=== PATIENT | female | born 1985 ===

== ENCOUNTER 2017-02-06 23:35 | Emergency (ER) | payer OTHER ==
[~2017-02-06] VITALS: Ht 162.6 cm; Wt 68.0 kg
[2017-02-06 23:43] VITALS: Ht 162.6 cm; Wt 68.0 kg
--- NOTE | 2017-02-07 00:14 | ERD ---
ER Documentation Chief Complaint Chief Complaint running in traffic, erratic, admits to using meth this am. In [employer] custody HPI This 31-year-old female presents in police custody for an arrest. She admits to using methamphetamines this morning. She denies any physical complaints. She denies any suicidal homicidal ideations. Had no recent injuries or trauma. ROS All systems reviewed and are negative except as per history of present illness. Allergies Allergies: Coded Allergies: No Known Allergy (Unverified , 02/06/17) PMhx/Soc Medical and Surgical Hx: pt denies Surgical Hx History of Surgery: No Anesthesia Reaction: No Hx Neurological Disorder: No Hx Respiratory Disorders: No Hx Cardiac Disorders: No Hx Psychiatric Problems: Yes (BIPOLAR, SCHIZOPHRENIA, DRUG ABUSE) Hx Miscellaneous Medical Probl: Yes (DRUG ABUSE) Hx Alcohol Use: Yes Hx Substance Use: Yes Hx Tobacco Use: Yes Smoking Status: Current some day smoker Physical Exam Vitals Vital Signs Date Time Temp Pulse Resp B/P Pulse Ox O2 Delivery O2 Flow Rate FiO2 02/06/17 23:43 98.4 89 18 134/77 96 Physical Exam Const: [] No distress Head: Atraumatic Eyes: Normal Conjunctiva ENT: Normal External Ears, Nose and Mouth. Neck: Full range of motion..~ No meningismus. Resp: Clear to auscultation bilaterally Cardio: Regular rate and rhythm, no murmurs Abd: Soft, non tender, non distended. Normal bowel sounds Skin: No petechiae or rashes Back: No midline or flank tenderness Ext: No cyanosis, or edema Neur: Awake and alert and oriented 3, no focal deficits Psych: Normal Mood and Affect Procedures/MDM Medical clearance for booking and patient with amphetamine use. She has no physical complaints. Complete physical exam was performed and I see no signs of trauma or any other current abnormality. Going to discharge this female and please custody. She has no need for medications at this time. I am discharging her with instructions on coping with methamphetamine use and addiction. Her care follow-up in 2-3 days. Departure Diagnosis: Primary Impression: Methamphetamine use Condition: Stable Patient Instructions: Understanding Methamphetamine Abuse and Addiction Referrals: COMMUNITY CLINICS YOU HAVE RECEIVED A MEDICAL SCREENING EXAM AND THE RESULTS INDICATE THAT YOU DO NOT HAVE A CONDITION THAT REQUIRES URGENT TREATMENT IN THE EMERGENCY DEPARTMENT. FURTHER EVALUATION AND TREATMENT OF YOUR CONDITION CAN WAIT UNTIL YOU ARE SEEN IN YOUR DOCTORS OFFICE WITHIN THE NEXT 1-2 DAYS. IT IS YOUR RESPONSIBILITY TO MAKE AN APPOINTMENT FOR FOLOW-UP CARE. IF YOU HAVE A PRIMARY DOCTOR --you should call your primary doctor and schedule an appointment IF YOU DO NOT HAVE A PRIMARY DOCTOR YOU CAN CALL OUR PHYSICIAN REFERRAL HOTLINE AT IF YOU CAN NOT AFFORD TO SEE A PHYSICIAN YOU CAN CHOSE FROM THE FOLLOWING [facility] [address] [employer] [address] [facility] [address] [employer] [facility] [address] [facility] [address] [facility] [address] [facility]. [facility]. [address] Additional Instructions: Call your primary care doctor TOMORROW for an appointment during the next 2-3 days.See the doctor sooner or return here if your condition worsens before your appointment time. IVONNE BEEBE DO Feb 07, 2017 00:14
== END 2017-02-07 00:27 | disposition home or self-care (01) ==
LOC: E/R 23:35
DX: F15.90 Other stimulant use, unspecified, uncomplicated (principal); R40.2242 Coma scale, best verbal response, confused conversation, at arrival to emergency department; F17.210 Nicotine dependence, cigarettes, uncomplicated; R40.2142 Coma scale, eyes open, spontaneous, at arrival to emergency department; R40.2362 Coma scale, best motor response, obeys commands, at arrival to emergency department
CPT/HCPCS: 99282